=== PATIENT | female | born 1980 | race Caucasian/White ===

== ENCOUNTER 2017-05-03 20:15 | Emergency (ER) | payer MEDICAID ==
[~2017-05-03] VITALS: Ht 172.7 cm; Wt 64.0 kg
[2017-05-03 21:09] LABS: ASPARTATE AMINO TRANSFERASE 11 U/L (15-37); BLOOD UREA NITROGEN 13 mg/dL (7-18)
[2017-05-03] MEDS ORDERED: ONDANSETRON 2MG/ML, 2ML IVPush ONE (23:00)
[2017-05-03] MEDS ORDERED: CIPROFLOXACIN 500 MG TABLET PO ONE (23:00)
[2017-05-03] MEDS ORDERED: SODIUM CHLORIDE 0.9% 1,000ML IVBOLUS ONE (23:00)
[2017-05-03] MEDS ORDERED: KETOROLAC 30 MG/1 ML IVPush ONE (23:00)
[2017-05-03] MEDS ORDERED: SODIUM CHLORIDE FLUSH 10ML SYR IVF ONE (23:00)
[2017-05-03] MEDS ORDERED: KETOROLAC 30 MG/1 ML ONE (23:48)
[2017-05-03] MEDS ORDERED: ONDANSETRON 2MG/ML, 2ML ONE (23:49)
[2017-05-03] MEDS ORDERED: CIPROFLOXACIN 500 MG TABLET ONE (23:49)
[2017-05-04 00:30] VITALS: BP 121/74
== END 2017-05-04 00:32 | disposition home or self-care (01) ==
LOC: ED 23:05
DX: N20.1 Calculus of ureter (principal); R31.9 Hematuria, unspecified; Z87.891 Personal history of nicotine dependence; Z87.442 Personal history of urinary calculi
CPT/HCPCS: 36415; 74000; 76830; 80053; 81001; 84703; 85025; 87086; 96361; 96374; 96375; 99285; J1885; J2405; J7030

== ENCOUNTER 2017-05-09 19:42 | Emergency (ER) | payer MEDICAID ==
[~2017-05-09] VITALS: Ht 172.7 cm; Wt 64.4 kg
[2017-05-09] MEDS ORDERED: SODIUM CHLORIDE FLUSH 10ML SYR IVF ONE (20:00)
[2017-05-09] MEDS ORDERED: SODIUM CHLORIDE 0.9% 1,000ML IV ONE (20:00)
[2017-05-09 20:38] LABS: BLOOD UREA NITROGEN 8 mg/dL (7-18)
[2017-05-09 21:51] VITALS: BP 107/55
== END 2017-05-09 21:52 | disposition home or self-care (01) ==
LOC: ED 21:30
DX: J02.8 Acute pharyngitis due to other specified organisms (principal); B97.89 Other viral agents as the cause of diseases classified elsewhere; Z87.891 Personal history of nicotine dependence
CPT/HCPCS: 36415; 76770; 80048; 81001; 82040; 84703; 85025; 87086; 99285

== ENCOUNTER 2020-07-09 21:55 | Emergency (ER) | payer MEDICAID ==
[~2020-07-09] VITALS: Ht 172.7 cm; Wt 60.7 kg
[2020-07-09 22:05] VITALS: BP 107/69
[2020-07-09 22:33] LABS: BASOPHILS # (AUTO) 0.05 x10^3/uL (0-0.1); BASOPHILS % (AUTO) 1 % (0-1); EOSINOPHILS % (AUTO) 1 % (1-7); LYMPHOCYTES # (AUTO) 2.16 x10^3/uL (1-3.4); LYMPHOCYTES % (AUTO) 21 % (22-44); MD NO; MEAN CORPUSCULAR HEMOGLOBIN 33.2 pg (27.0-34.8); MEAN CORPUSCULAR VOLUME 100.4 fL (80-100); MONOCYTES # (AUTO) 0.57 x10^3/uL (0.2-0.8); MONOCYTES % (AUTO) 6 % (2-9); NEUTROPHILS % (AUTO) 72 % (42-75); PLATELET COUNT 325 x10^3/uL (130-400); RED BLOOD COUNT 4.62 x10^6/uL (3.82-5.3); RED CELL DISTRIBUTION WIDTH 13.6 % (9.6-15.2)
[2020-07-09 22:46] LABS: ALANINE AMINOTRANSFERASE 15 U/L (12-78); ALBUMIN 3.6 g/dL (3.4-5.0); ANION GAP 6 mmol/L (5-15); CHLORIDE 108 mmol/L (98-107); CREATININE 0.93 mg/dL (0.55-1.02)
[2020-07-09 22:49] LABS: ALKALINE PHOSPHATASE 72 U/L (45-117); BILIRUBIN,TOTAL 0.7 mg/dL (0.2-1.0); CALCIUM 9.7 mg/dL (8.5-10.1); TOTAL PROTEIN 7.3 g/dL (6.4-8.2)
--- NOTE | 2020-07-10 00:09 | NUR ---
Pt to room from lobby at this time.
--- NOTE | 2020-07-10 01:37 | NUR ---
BREAK RN: PELVIC DONE BY DR PADILLA. VS STABLE. NO ACUTE DISTRESS NOTED. CALL LIGHT IN PLACE. WILL CONTINUE TO MONITOR WHILE PRIMARY RN IS ON BREAK.
[2020-07-10 01:39] LABS: MICROSCOPIC INDICATED
[2020-07-10 01:52] LABS: CLUE CELLS NONE SEEN (NONE SEEN); WET PREP WBCS MODERATE (FEW)
[2020-07-10] MEDS ORDERED: CEFTRIAXONE 250 MG IM ONE (02:00)
[2020-07-10] MEDS ORDERED: AZITHROMYCIN 500 MG TABLET PO ONE (02:00)
[2020-07-10] MEDS ORDERED: AZITHROMYCIN 500 MG TABLET ONE (02:05)
[2020-07-10] MEDS ORDERED: CEFTRIAXONE 250 MG ONE (02:06)
== END 2020-07-10 02:35 | disposition home or self-care (01) ==
LOC: ED 07-10 02:15
DX: N30.00 Acute cystitis without hematuria (principal); R30.0 Dysuria; N89.8 Other specified noninflammatory disorders of vagina; I49.8 Other specified cardiac arrhythmias; R07.9 Chest pain, unspecified; Z87.891 Personal history of nicotine dependence
CPT/HCPCS: 36415; 71045; 80053; 81001; 84703; 85025; 87077; 87086; 87147; 87186; 87210; 87491; 87591; 87808; 93005; 99285

== ENCOUNTER 2021-01-14 17:49 | Emergency (ER) | payer MEDICAID ==
[~2021-01-14] VITALS: Ht 172.7 cm; Wt 61.8 kg
[2021-01-14] MEDS ORDERED: ONDANSETRON ODT 4 MG PO ONE (18:30)
[2021-01-14] MEDS ORDERED: IBUPROFEN 600 MG TABLET PO ONE (18:30)
--- NOTE | 2021-01-14 18:32 | NUR ---
PT. ARRIVES BY PRIVATE VEHICLE WITH C/O RIGHT FLANK PAIN SINCE THIS MORNING. PT. HAS A HX OF KIDNEY STONES IN HER RIGHT KIDNEY. PT. IS A & O X 4 WITH A GCS OF 15. SHE IS PINK, WARM AND DRY. LUNGS ARE CTA. MM ARE PINK AND MOIST WITH PULSES +2 THROGUHOUT. PT.'S ABD. IS SOFT AND FLAT WITH BS + X 4 QUADS. PT. PABON WNL. PT. IS RESTING WITH BLANKETS IN PLACE. VSS. HOB IS ELEVATED GREATER THAN 30 DEREES. PT. WAS MEDICATED PER MD ORDERS. SR ARE UP X 2 WITH THE CALL LIGHT IN PLACE.
[2021-01-14 18:34] LABS: BASOPHILS % (AUTO) 1 % (0-1); EOSINOPHILS % (AUTO) 2 % (1-7); LYMPHOCYTES % (AUTO) 37 % (22-44); MEAN CORPUSCULAR HEMOGLOBIN 33.9 pg (27.0-34.8); MEAN CORPUSCULAR HGB CONC 33.9 g/dL (32.4-35.8); MEAN PLATELET VOLUME 8.6 fL (7.4-10.4); MONOCYTES % (AUTO) 8 % (2-9); NEUTROPHILS % (AUTO) 52 % (42-75); PLATELET COUNT 228 x10^3/uL (130-400); RED BLOOD COUNT 3.99 x10^6/uL (3.82-5.3); RED CELL DISTRIBUTION WIDTH 12.9 % (9.6-15.2)
[2021-01-14 18:35] LABS: MD NO
[2021-01-14] MEDS ORDERED: ONDANSETRON ODT 4 MG ONE (18:38)
[2021-01-14] MEDS ORDERED: IBUPROFEN 600 MG TABLET ONE (18:38)
[2021-01-14 18:41] LABS: ALANINE AMINOTRANSFERASE 11 U/L (12-78); ALBUMIN 3.5 g/dL (3.4-5.0); ANION GAP 3 mmol/L (5-15); CALCIUM 8.7 mg/dL (8.5-10.1); CHLORIDE 112 mmol/L (98-107)
[2021-01-14 18:46] LABS: ALKALINE PHOSPHATASE 50 U/L (45-117); TOTAL PROTEIN 6.3 g/dL (6.4-8.2)
[2021-01-14 18:51] LABS: MICROSCOPIC INDICATED
--- NOTE | 2021-01-14 19:35 | NUR ---
PT. IS RESTING WITHOUT CONCERNS. ADEQUATE RELIEF FROM MEDS. PT.'S VSS. CT CALLED TO HAVE THE SCAN COMPLETED. PT. HAS THE CALL LIGHT IN PLACE.
--- NOTE | 2021-01-14 21:00 | NUR ---
PT. WAS GIVEN DISCHARGE INSTRUCTIONS AND SCRIPTS WITH UNDERSTANDING VERBALIZED ALONG WITH WILLINGNESS TO COMPLY. PT. WAS AMBULATORY WITH A STEADY GAIT TO THE DISCHARGE DESK. VSS.
[2021-01-14 21:01] VITALS: BP 94/56
== END 2021-01-14 21:03 | disposition home or self-care (01) ==
LOC: ED 18:19
DX: N83.292 Other ovarian cyst, left side (principal); N20.0 Calculus of kidney; R10.9 Unspecified abdominal pain; F17.210 Nicotine dependence, cigarettes, uncomplicated
CPT/HCPCS: 36415; 74176; 80053; 81001; 83690; 84703; 85025; 99284; 99406; Q0162